=== PATIENT | female | born 1995 | race Caucasian/White ===

== ENCOUNTER 2017-06-01 16:26 | Emergency (ER) | payer OTHER ==
[2017-06-01 17:06] LABS: Appearance,Urine Clear (Clear); Bilirubin,Urine Negative (Negative); Blood,Urine Negative (Negative); Color,Urine Colorless; Glucose,Urine (UA) Negative (Negative); Ketones,Urine Negative (Negative); Leukocyte Esterase,Urine Negative (Negative); Nitrite,Urine Negative (Negative); Protein,Urine Negative (Negative); Specific Gravity,Urine 1.004 (1.001-1.035); Urobilinogen,Urine <2.0 mg/dL (<2.0)
--- NOTE | 2017-06-01 17:13 | ED ---
General Adult HPI - General Chief complaint: Abdominal Pain Stated complaint: Abd Pain-11 wks Time Seen by Provider: 06/01/17 16:47 Source: patient, RN notes reviewed, old records reviewed Mode of arrival: ambulatory Limitations: no limitations - History of Present Illness Initial comments: This is a 22-year-old female at a. This patient presents today for evaluation regards to cramping, works abdominal cramping. Patient's known positive but unknown dates. No prior evaluation of . No vaginal bleeding no significant pain is cramping. This is a with no prior complications of first . Patient denies any recent fever no nausea vomiting or diarrhea - Related Data Home Medications Medication Instructions Recorded Confirmed Pnv,Calcium 72/Iron/Folic Acid 1 tab PO HS 08/10/14 06/01/17 [Pnv Plus Multivit Tab] Allergies Allergy/AdvReac Type Severity Reaction Status Date / Time No Known Allergies Allergy Verified 06/01/17 16:51 Review of Systems ROS Statement: Those systems with pertinent positive or pertinent negative responses have been documented in the HPI. ROS Other: All systems not noted in ROS Statement are negative. Past Medical History Past Medical History: No Reported History History of Any Multi-Drug Resistant Organisms: None Reported Past Surgical History: No Surgical Hx Reported Past Anesthesia/Blood Transfusion Reactions: No Reported Reaction Past Psychological History: Anxiety, Bipolar Smoking Status: Never smoker Past Alcohol Use History: None Reported Past Drug Use History: None Reported - Past Family History Mother Additional Family Medical History / Comment(s): type 2 diabetes General Exam Limitations: no limitations General appearance: alert, in no apparent distress Head exam: Present: atraumatic, normocephalic, normal inspection Eye exam: Present: normal appearance, PERRL, EOMI. Absent: scleral icterus, conjunctival injection, periorbital swelling ENT exam: Present: normal exam, mucous membranes moist Neck exam: Present: normal inspection. Absent: tenderness, meningismus, lymphadenopathy Respiratory exam: Present: normal lung sounds bilaterally. Absent: respiratory distress, wheezes, rales, rhonchi, stridor Cardiovascular Exam: Present: regular rate, normal rhythm, normal heart sounds. Absent: systolic murmur, diastolic murmur, rubs, gallop, clicks GI/Abdominal exam: Present: soft, normal bowel sounds. Absent: distended, tenderness, guarding, rebound, rigid Extremities exam: Present: normal inspection, full ROM, normal capillary refill. Absent: tenderness, pedal edema, joint swelling, calf tenderness Back exam: Present: normal inspection Neurological exam: Present: alert, oriented X3, CN II-XII intact Psychiatric exam: Present: normal affect, normal mood Skin exam: Present: warm, dry, intact, normal color. Absent: rash Course Vital Signs 06/01/17 06/01/17 16:40 19:16 Temperature 98.3 F 98 F Pulse Rate 86 83 Respiratory 20 18 Rate Blood Pressure 123/69 117/68 O2 Sat by Pulse 97 99 Oximetry Medical Decision Making - Medical Decision Making 22 female the ER for evasive cramping and . Patient is IP positive. Patient given follow-up for OB for repeat beta-hCG - Lab Data Lab Results 06/01/17 06/01/17 06/01/17 Range/Units 16:47 16:47 18:43 HCG, Quant 56029.1 mIU/mL Urine Color Colorless Urine Appearance Clear (Clear) Urine pH 6.0 (5.0-8.0) Ur Specific [place] 1.004 (1.001-1.035) Urine Protein Negative (Negative) Urine Glucose (UA) Negative (Negative) Urine Ketones Negative (Negative) Urine Blood Negative (Negative) Urine Nitrite Negative (Negative) Urine Bilirubin Negative (Negative) Urine Urobilinogen <2.0 (<2.0) mg/dL Ur Leukocyte Esterase Negative (Negative) Urine HCG, Qual Detected (Not Detectd) - Radiology Data Radiology results: report reviewed (Ultrasound shows POSITIVE GESTATIONAL SAC EARLY ), image reviewed Disposition Clinical Impression: Early stage of , Abdominal pain affecting Disposition: HOME SELF-CARE Instructions: Abdominal Pain in (ED) Referrals: Michael Kumari MD [Primary Care Provider] - 1-2 days
--- NOTE | 2017-06-01 18:12 | US ---
EXAMINATION TYPE: US OB <= 14 wk fetus DATE OF EXAM: 06/01/2017 COMPARISON: NONE CLINICAL HISTORY: Pain. EXAM PERFORMED: Transabdominal (TA), patient refused transvaginal, she stated she wanted to wait and see her [employer] EXAM MEASUREMENTS: GESTATIONAL AGE / DATING Physician Established: Not yet established Dates by LMP: LMP unknown Dates by First Scan: No previous this is first scan Dates by Current Scan for: Unable to date by today's study MATERNAL ANATOMY Uterus: 8.6 x 4.9 x 6.1cm Right Ovary: 4.1 x 2.6 x 3.7cm Left Ovary: 3.7 x 2.0 x 2.2cm Post CDS / Adnexa: wnl Presence of free fluid: no Presence of possible corpus luteal cyst: 2.0 x 2.1 x 1.9cm GESTATION / SURVEY CRL: not yet seen MSD: 0.84 (too early to register date) Yolk Sac (normal less than 6mm): 4mm Date of LMP: patient unsure, she thinks the beginning of February Beta HcG (if available): Not available at this time Probable early IUP, too soon to see crown rump length, can't rule out blighted ovum. IMPRESSION: Intrauterine gestational sac and yolk sac are identified. No current pole likely due to to [place] y intrauterine , however as no pole or heart tones are yet seen anembryonic and ectopic remain within the differential. Correlation should be made with serum beta hCG level. Short-term follow-up serial serum beta hCGs and pelvic ultrasound and 7-10 days are recommende luis angel
[2017-06-01 19:17] VITALS: BP 117/68; PULSE 83; RESP 18; TEMP 98
== END 2017-06-01 19:17 | disposition home or self-care (01) ==
LOC: EC 16:26
DX: O99.89 Other specified diseases and conditions complicating pregnancy, childbirth and the puerperium (principal); R10.9 Unspecified abdominal pain; Z3A.00 Weeks of gestation of pregnancy not specified
CPT/HCPCS: 36415; 76801; 81003; 81025; 84702; 87086; 99284

== ENCOUNTER 2018-01-03 19:20 | Outpatient (CLI) | payer OTHER ==
[2018-01-03 19:59] LABS: Amorphous Sediment,Urine Rare /hpf; Appearance,Urine Clear (Clear); Bilirubin,Urine Negative (Negative); Blood,Urine Negative (Negative); Color,Urine Yellow; Glucose,Urine (UA) Negative (Negative); Ketones,Urine Negative (Negative); Leukocyte Esterase,Urine Trace (Negative); Mucus,Urine Rare /hpf; Nitrite,Urine Negative (Negative); PH, Urine 6.5 (5.0-8.0); Protein,Urine Negative (Negative); RBC,Urine 1 /hpf (0-5); Specific Gravity,Urine 1.014 (1.001-1.035); Squamous Epithelial Cell,Urine 12 /hpf (0-4); Urobilinogen,Urine <2.0 mg/dL (<2.0); WBC,Urine 11 /hpf (0-5)
[2018-01-03 20:16] VITALS: BP 124/67; PULSE 96; RESP 16; TEMP 97.5
--- NOTE | 2018-01-17 08:48 | P.MSEPDOC ---
Presenting Problems - Arrival Data Date of Arrival on Unit: 01/03/18 Time of Arrival on Unit: 19:20 Mode of Transport: Ambulatory - Complaint OB-Reason for Admission/Chief Complaint: Possible Onset of Labor Medical History - Information : 2 Para: 1 Term: 1 : 0 Abortions: Spontaneous or Elective: 0 Number of Living Children: 1 - Gestational Age Gestational Age by ALYSIA (wks/days): 36 Weeks and 3 Days Review of Systems - Review of Systems Constitutional: No problems Breast: No problems ENT: No problems Cardiovascular: No problems Respiratory: No problems Gastrointestinal: No problems Genitourinary: No problems Musculoskeletal: No problems Neurological: No problems Skin: No problems Vital Signs - Temperature Temperature: 97.5 F Temperature Source: Temporal Artery Scan - Pulse Right Brachial Pulse Rate: 96 Pulse Assessment Method: Automatic Cuff - Respirations Respiratory Rate: 16 Oxygen Delivery Method: Room Air O2 Sat by Pulse Oximetry: 98 - Blood Pressure Right Arm Blood Pressure: 124/67 Blood Pressure Mean: 86 Blood Pressure Source: Automatic Cuff Medical Screen Scoring (Pre) - Cervical Exam Dilation: 1-3 cm = 1 Membranes: Intact - Uterine Contractions Frequency: > 5 minutes apart = 1 Duration: N/A Intensity: N/A - Maternal Vital Signs Maternal Temperature: N/A Maternal Blood Pressure: N/A Signs of Preeclampsia: N/A Maternal Respirations: N/A - Pain Assessment Pain Location and Character: Lower, Back Pain Scale Used: Numeric (1 - 10) Pain Intensity: 3 Pain Description: *Acute, Dull Pain Frequency: Intermittent Pain Duration Units: Minutes Pain Behavior: None Exhibited Pain Aggravating Factors: None - Assessment Baseline FHR: 125 Heart Rate - NICHD Category: Category I (Normal) = 0 NST: Reactive Position: N/A Station: N/A - Total Score Total Score (Pre): 2 - Level of Risk Level of Risk: Low (0-5) Physician Notification (Pre) - Physician Notified Physician Notified Date: 01/03/18 Physician Notified Time: 19:30 Physician/Practitioner Notifed:: Dr. Ozuna Spoke With: Dr. Ozuna New Order Received: Yes - Notification Comment Comment: Dr. Ozuna called and given report on pt in triage. Pt c/o. VS wnl. Reactive. nst. Vag exam of 2/60/-2. UA results. Orders recieved to d/c pt to home. Disposition - Disposition OB Disposition: Discharge to home Discharge Date: 01/03/18 Discharge Time: 20:10 I agree with the RN Medical Screening Exam: Yes Risk & Benefit of care provided described in d/c instruction: Yes Diagnosis: FALSE LABOR AT OR AFTER 37 COMPLETED WEEKS OF GESTATION
== END 2018-01-03 20:10 | disposition home or self-care (01) ==
LOC: FBPOP 19:20
PROVIDERS: ATTEND Obstetrics & Gynecology
DX: O47.1 False labor at or after 37 completed weeks of gestation (principal); Z3A.36 36 weeks gestation of pregnancy
CPT/HCPCS: 59025; 81001; G0463; 99213

== ENCOUNTER 2018-01-16 21:51 | Inpatient (IN) | payer OTHER ==
[2018-01-16 22:19] VITALS: RESP 16
[2018-01-16] MEDS ORDERED: AMPICILLIN 2,000 MG in SODIUM CHLORIDE 0.9% 100 ML IVPB ONE (23:00)
[2018-01-16] MEDS ORDERED: TERBUTALINE 1 MG/ML VIAL SQ PRN (23:10)
[2018-01-16] MEDS ORDERED: OXYTOCIN 10 UNIT/ML 1 ML VIAL IM PRN (23:10)
[2018-01-16] MEDS ORDERED: CARBOPROST TROMETHAMINE 250 MCG/ML 1 ML AMP IM PRN (23:10)
[2018-01-16] MEDS ORDERED: METHYLERGONOVINE 0.2 MG/ML 1 ML AMP IM PRN (23:10)
[2018-01-16] MEDS ORDERED: LIDOCAINE 1% INJ 10MG/ML (20 ML MDV) SQ PRN (23:10)
[2018-01-16] MEDS: LACTATED RINGERS 1,000 ML IV SCH (23:32)
[2018-01-16 23:56] VITALS: BMI 29.9
[2018-01-16 23:58] LABS: Basophils % (A) 0 %; Eosinophils # (A) 0.1 k/uL (0-0.7); Eosinophils % (A) 1 %; HCT 36.2 % (34.0-46.0); HGB 12.9 gm/dL (11.4-16.0); Lymphocytes # (A) 1.9 k/uL (1.0-4.8); Lymphocytes % (A) 13 %; MCH 31.4 pg (25.0-35.0); MCHC 35.5 g/dL (31.0-37.0); MCV 88.5 fL (80.0-100.0); Mean Platelet Volume 8.2; Monocytes # (A) 0.6 k/uL (0-1.0); Monocytes % (A) 4 %; Neutrophils # (A) 11.6 k/uL (1.3-7.7); Neutrophils % (A) 81 %; Platelet Count 199 k/uL (150-450); RBC 4.09 m/uL (3.80-5.40); WBC 14.3 k/uL (4.0-11.0)
[2018-01-17] MEDS: AMPICILLIN 1,000 MG in SODIUM CHLORIDE 0.9% 50 ML IVPB SCH ×3 (03:30→11:05)
[2018-01-17] MEDS: OXYTOCIN 20 UNITS/1000 ML NS 1,000 ML IV SCH ×2 (03:31→08:46)
[2018-01-17] MEDS: LACTATED RINGERS 1,000 ML IV SCH (07:36)
[2018-01-17] MEDS ORDERED: BUTORPHANOL 1 MG/ML 1 ML VIAL IV PRN (08:48)
--- NOTE | 2018-01-17 08:56 | P.HPOB ---
History of Present Illness H&P Date: 01/17/18 Chief Complaint: Intrauterine at term: Active labor Deja was admitted last night for active labor. She had made change from 5 cm to 6 cm and was ronen every 2-5 minutes. Through the course of the evening her contractions did dissipate, however she was still dilated to 6-7 cm this morning and artificial rupture membranes was performed with clear fluid noted. We'll also initiate augmentation of labor with Pitocin. Her Precis course otherwise was unremarkable. Pertinent labs O+ blood type Rh and it was negative, rubella immune, hepatitis B surface antigen as well as RPR were also negative. GBS was positive. We'll initiate Pitocin augmentation of labor as well as she has received antibiotics for GBS prophylaxis. Past Medical History Past Medical History: No Reported History History of Any Multi-Drug Resistant Organisms: None Reported Past Surgical History: No Surgical Hx Reported Past Anesthesia/Blood Transfusion Reactions: No Reported Reaction Past Psychological History: Anxiety, Bipolar, Depression Smoking Status: Never smoker Past Alcohol Use History: None Reported Past Drug Use History: None Reported - Past Family History Mother Additional Family Medical History / Comment(s): type 2 diabetes Medications and Allergies Home Medications Medication Instructions Recorded Confirmed Type Pnv,Calcium 72/Iron/Folic Acid 1 tab PO HS 08/10/14 01/16/18 History [Pnv Plus Multivit Tab] Allergies Allergy/AdvReac Type Severity Reaction Status Date / Time No Known Allergies Allergy Verified 01/03/18 19:34 Exam Osteopathic Statement: *. No significant issues noted on an osteopathic structural exam other than those noted in the History and Physical/Consult. Vital Signs Temp Pulse Resp BP 01/16/18 22:10 97.2 F L 112 H 16 131/73 Intake and Output 01/16/18 01/17/18 01/17/18 22:59 06:59 14:59 Intake Total 100 Balance 100 Intake: Intake, IV Titration 100 Amount Ampicillin 2,000 mg In 100 Sodium Chloride 0.9% 100 ml @ 200 mls/hr IVPB ONCE ONE Rx#:[id number] Other: # Voids 2 Weight 76.657 kg 76.657 kg - OBG Physical Exam Breast: both: normal (no masses) Abdomen: bowel sounds normal, no diffuse tenderness, no bruit present, no guarding noted, no hepatomegaly, no splenomegaly, no mass Vulva: both: normal Vagina: normal moisture, no discharge Cervix: no lesion, no discharge Uterus: normal size, normal contour Adnexa: both: normal Anus/Rectum: normal perianal skin, no rectal mass, no hemorrhoids, heme negative Results Result Diagrams: 01/16/18 23:30 Abnormal Lab Results - Last 24 Hours (Table) 01/16/18 Range/Units 23:30 WBC 14.3 H (4.0-11.0) k/uL Neutrophils # 11.6 H (1.3-7.7) k/uL
[2018-01-17] MEDS ORDERED: SIMETHICONE 80 MG CHEWABLE PO PRN (12:33)
[2018-01-17] MEDS ORDERED: ZOLPIDEM 5 MG TAB PO PRN (12:33)
[2018-01-17] MEDS ORDERED: HYDROCORTISONE 2.5% RECTAL CREAM 30 GM TUBE RECTAL PRN (12:33)
[2018-01-17] MEDS ORDERED: ACETAMINOPHEN TAB 325 MG TAB PO PRN (12:33)
[2018-01-17] MEDS ORDERED: diphenhydrAMINE 50 MG/ML 1 ML VIAL IVP PRN ×2 (12:33)
[2018-01-17] MEDS ORDERED: IBUPROFEN 600 MG TAB PO PRN (12:33)
[2018-01-17] MEDS ORDERED: WITCH HAZEL 1 EACH MED..PAD TOPICAL PRN (12:33)
[2018-01-17] MEDS ORDERED: LANOLIN CREAM 5 GM TUBE TOPICAL PRN (12:33)
[2018-01-17] MEDS ORDERED: BENZOCAINE/MENTHOL SPRAY 1 GM/SPRAY AEROSOL TOPICAL PRN (12:33)
[2018-01-17] MEDS ORDERED: diphenhydrAMINE 25 MG CAP PO PRN (12:33)
[2018-01-17] MEDS ORDERED: diphenhydrAMINE 50 MG CAP PO PRN (12:33)
--- NOTE | 2018-01-17 12:35 | P.PROBDLV ---
Vaginal Delivery Note - . Vaginal Delivery Note: Patient progressed to complete and pushing with spontaneous vaginal delivery of a viable female from right occiput anterior position. Falling deliver the head a compound hand was noted and easily delivered with gentle rotation the full arm delivered followed by the anterior arm and remainder the baby. Mouth nares were bulb suctioned and baby was placed on mother's abdomen where the umbilical cord was clamped cut usual fashion. Once is accomplished during delivery of the placenta I could feel the umbilical cord from the placenta so we took a very slow progression the cord and some membranes seem to be separate from the placenta and despite very slow on movement the cord essentially from the placental disc fully. We'll send for pathology. Once this was accomplished she and I discussed going to the operating room for exploratory exam under anesthesia, however she declined and wanted me to try and rhythm. She also declined IV pain medication for this. I did manually explored the uterus and the placental disc appears to be removed intact and on second is exam membranes were noted but no further membranes or placental are noted at the conclusion. Her bleeding is well controlled this time. She is aware that there is a possibility that there may still be some fragments of placenta or membrane still inside of her uterus and it may necessitate a D&C in the future, however this time there does not appear to be and on exam I cannot feel any further membranes or placental pieces. scores were 9 and 9 at one and 5 minutes respectively and the weight was 6 lbs. 9 oz. Both mother and baby currently appear stable following delivery. We'll monitor her bleeding very closely and address further treatments as needed.
[2018-01-17] MEDS: SENNOSIDES-DOCUSATE SODIUM 1 EACH TAB PO SCH (23:54)
[2018-01-18 07:07] LABS: Basophils % (A) 0 %; Eosinophils # (A) 0.1 k/uL (0-0.7); Eosinophils % (A) 1 %; HCT 31.9 % (34.0-46.0); HGB 11.1 gm/dL (11.4-16.0); Lymphocytes # (A) 1.6 k/uL (1.0-4.8); Lymphocytes % (A) 15 %; MCH 31.3 pg (25.0-35.0); MCHC 34.8 g/dL (31.0-37.0); Mean Platelet Volume 7.7; Monocytes # (A) 0.3 k/uL (0-1.0); Monocytes % (A) 3 %; Neutrophils # (A) 8.6 k/uL (1.3-7.7); Neutrophils % (A) 81 %; Platelet Count 164 k/uL (150-450); RBC 3.55 m/uL (3.80-5.40); RDW 14.3 % (11.5-15.5); WBC 10.7 k/uL (4.0-11.0)
[2018-01-18 09:00] VITALS: BP 113/69; PULSE 89; TEMP 99
[2018-01-18] MEDS: SENNOSIDES-DOCUSATE SODIUM 1 EACH TAB PO SCH (09:00)
--- NOTE | 2018-01-18 13:00 | P.DS ---
Providers Date of admission: 01/16/18 23:07 Expected date of discharge: 01/18/18 Attending physician: Dennis Ozuna Primary care physician: Dennis Ozuna [facility] Course: Deja is doing very well day 1. She is ambulating, voiding, and she is tolerating her diet. She voices no complaints and requests discharged home today. Her bleeding is very light and there is no sign of retained products at this time we'll therefore discharged patient home and instructions to follow up with me in 6 weeks. Other discharge instructions were thoroughly reviewed and all questions were answered for her prior to her discharge. Her heart was regular, lungs were clear, extremities without pain. Abdomen soft uterus is firm and lochia is reported light. Assessment day 1. Plan discharged home follow up with me in 6 weeks. Patient Condition at Discharge: Good Plan - Discharge Summary New Discharge Prescriptions: No Action Pnv,Calcium 72/Iron/Folic Acid [Pnv Plus Multivit Tab] 1 tab PO HS Discharge Medication List Pnv,Calcium 72/Iron/Folic Acid [Pnv Plus Multivit Tab] 1 tab PO HS [History] Follow up Appointment(s)/Referral(s): Dennis Ozuna DO [Primary Care Provider] - 1 Week Activity/Diet/Wound Care/Special Instructions: No heavy lifting, limit stairs and driving and pelvic rest. If any high temperatures, heavy bleeding, or severe pain call my office Discharge Disposition: HOME SELF-CARE
== END 2018-01-18 13:40 | disposition home or self-care (01) | DRG 807 ==
LOC: FBPOP 21:51 → 4FBP 23:07
PROVIDERS: ADMIT Obstetrics & Gynecology; ATTEND Obstetrics & Gynecology
PROC: 10907ZC Drainage of Amniotic Fluid, Therapeutic from Products of Conception, Via Natural or Artificial Opening (ICD-10-PCS; principal; 2018-01-16)
PROC: 10E0XZZ Delivery of Products of Conception, External Approach (ICD-10-PCS; 2018-01-16)
DX: O32.6XX0 Maternal care for compound presentation, not applicable or unspecified (principal); Z37.0 Single live birth; O69.89X0 Labor and delivery complicated by other cord complications, not applicable or unspecified; O99.824 Streptococcus B carrier state complicating childbirth; Z3A.38 38 weeks gestation of pregnancy; Z83.3 Family history of diabetes mellitus; Z86.59 Personal history of other mental and behavioral disorders
CPT/HCPCS: 59025; 85025; 86850; 86900; 86901; 88307; 99213

== ENCOUNTER 2018-08-31 19:44 | Emergency (ER) | payer OTHER ==
[2018-08-31 20:44] LABS: Appearance,Urine Clear (Clear); Bilirubin,Urine Negative (Negative); Blood,Urine Negative (Negative); Color,Urine Yellow; Glucose,Urine (UA) Negative (Negative); Ketones,Urine Negative (Negative); Leukocyte Esterase,Urine Small (Negative); Mucus,Urine Rare /hpf; Nitrite,Urine Negative (Negative); PH, Urine 5.5 (5.0-8.0); Protein,Urine Negative (Negative); RBC,Urine <1 /hpf (0-5); Specific Gravity,Urine 1.022 (1.001-1.035); Squamous Epithelial Cell,Urine 2 /hpf (0-4); Urobilinogen,Urine <2.0 mg/dL (<2.0)
--- NOTE | 2018-08-31 21:34 | ED ---
Female Urogenital HPI - General Chief complaint: Vaginal Bleeding Stated complaint: Spotting- Time Seen by Provider: 08/31/18 19:49 Source: patient, family Mode of arrival: ambulatory Limitations: no limitations - History of Present Illness Initial comments: Patient is a 23-year-old female presenting to the emergency Department with complaints of vaginal spotting 3 days and mild cramping. Patient states she took at home tests 3 times and they were all positive. Patient reports this will be her third with 2 children at home. Patient states the spotting has been light and mild cramping similar to period cramps. Patient states her last mental cycle was in June. Patient denies abdominal pain, urinary symptoms. Patient has no other complaints at this time. - Related Data Home Medications Medication Instructions Recorded Confirmed No Known Home Medications 08/31/18 08/31/18 Allergies Allergy/AdvReac Type Severity Reaction Status Date / Time No Known Allergies Allergy Verified 08/31/18 20:10 Review of Systems ROS Statement: Those systems with pertinent positive or pertinent negative responses have been documented in the HPI. ROS Other: All systems not noted in ROS Statement are negative. Past Medical History Past Medical History: No Reported History History of Any Multi-Drug Resistant Organisms: None Reported Past Surgical History: No Surgical Hx Reported Past Anesthesia/Blood Transfusion Reactions: No Reported Reaction Past Psychological History: Anxiety, Bipolar, Depression Smoking Status: Never smoker Past Alcohol Use History: None Reported Past Drug Use History: None Reported - Past Family History Mother Additional Family Medical History / Comment(s): type 2 diabetes General Exam - General Exam Comments Initial Comments: GENERAL: Well-appearing, well-nourished and in no acute distress. HEAD: Atraumatic, normocephalic. EYES: Pupils equal round and reactive to light, extraocular movements intact, sclera anicteric, conjunctiva are normal. ENT: TMs normal, nares patent, oropharynx clear without exudates. Moist mucous membranes. NECK: Normal range of motion, supple without lymphadenopathy or JVD. LUNGS: Breath sounds clear to auscultation bilaterally and equal. No wheezes rales or rhonchi. HEART: Regular rate and rhythm without murmurs, rubs or gallops. ABDOMEN: Soft, nontender, normoactive bowel sounds. No guarding, no rebound. No masses appreciated. : Deferred EXTREMITIES: Normal range of motion, no pitting or edema. No clubbing or cyanosis. NEUROLOGICAL: Cranial nerves II through XII grossly intact. Normal speech, normal gait. PSYCH: Normal mood, normal affect. SKIN: Warm, Dry, normal turgor, no rashes or lesions noted. Limitations: no limitations Course Vital Signs 08/31/18 08/31/18 19:46 22:37 Temperature 98.8 F Pulse Rate 94 87 Respiratory 20 18 Rate Blood Pressure 133/83 120/81 O2 Sat by Pulse 98 98 Oximetry Medical Decision Making - Medical Decision Making Patient is a 23-year-old female complaining of vaginal spotting 3 days and mild cramping. Patient reports 3 positive at-home test. Patient will be . UA reveals positive . CBC/BMP are within normal limits. UA reveals no UTI. HCG, sheree is 725. Patient refused transvaginal ultrasound there for only transabdominal examination was performed. No intrauterine identified on transabdominal. Recommend OB follow-up in 48 hours for repeat hCG and ultrasound. Return parameters were discussed. Patient will be discharged home. - Lab Data Result diagrams: 08/31/18 21:20 08/31/18 21:20 Lab Results 08/31/18 08/31/18 08/31/18 Range/Units 20:30 20:30 21:20 WBC (3.8-10.6) k/uL RBC (3.80-5.40) m/uL Hgb (11.4-16.0) gm/dL Hct (34.0-46.0) % MCV (80.0-100.0) fL MCH (25.0-35.0) pg MCHC (31.0-37.0) g/dL RDW (11.5-15.5) % Plt Count (150-450) k/uL Neutrophils % % Lymphocytes % % Monocytes % % Eosinophils % % Basophils % % Neutrophils # (1.3-7.7) k/uL Lymphocytes # (1.0-4.8) k/uL Monocytes # (0-1.0) k/uL Eosinophils # (0-0.7) k/uL Basophils # (0-0.2) k/uL Sodium 138 (137-145) mmol/L Potassium 4.2 (3.5-5.1) mmol/L Chloride 104 (98-107) mmol/L Carbon Dioxide 23 (22-30) mmol/L Anion Gap 11 mmol/L BUN 12 (7-17) mg/dL Creatinine 0.64 (0.52-1.04) mg/dL Est GFR (CKD-EPI)AfAm >90 (>60 ml/min/1.73 sqM) Est GFR (CKD-EPI)NonAf >90 (>60 ml/min/1.73 sqM) Glucose 100 H (74-99) mg/dL Calcium 9.3 (8.4-10.2) mg/dL HCG, Quant 725.3 mIU/mL Urine Color Yellow Urine Appearance Clear (Clear) Urine pH 5.5 (5.0-8.0) Ur Specific [facility] 1.022 (1.001-1.035) Urine Protein Negative (Negative) Urine Glucose (UA) Negative (Negative) Urine Ketones Negative (Negative) Urine Blood Negative (Negative) Urine Nitrite Negative (Negative) Urine Bilirubin Negative (Negative) Urine Urobilinogen <2.0 (<2.0) mg/dL Ur Leukocyte Esterase Small H (Negative) Urine RBC <1 (0-5) /hpf Urine WBC 9 H (0-5) /hpf Ur Squamous Epith Cells 2 (0-4) /hpf Urine Mucus Rare H (None) /hpf Urine HCG, Qual Detected (Not Detectd) 08/31/18 Range/Units 21:20 WBC 9.1 (3.8-10.6) k/uL RBC 5.01 (3.80-5.40) m/uL Hgb 14.0 (11.4-16.0) gm/dL Hct 41.4 (34.0-46.0) % MCV 82.7 (80.0-100.0) fL MCH 27.9 (25.0-35.0) pg MCHC 33.8 (31.0-37.0) g/dL RDW 14.2 (11.5-15.5) % Plt Count 296 (150-450) k/uL Neutrophils % 65 % Lymphocytes % 28 % Monocytes % 3 % Eosinophils % 2 % Basophils % 0 % Neutrophils # 6.0 (1.3-7.7) k/uL Lymphocytes # 2.6 (1.0-4.8) k/uL Monocytes # 0.3 (0-1.0) k/uL Eosinophils # 0.2 (0-0.7) k/uL Basophils # 0.0 (0-0.2) k/uL Sodium (137-145) mmol/L Potassium (3.5-5.1) mmol/L Chloride (98-107) mmol/L Carbon Dioxide (22-30) mmol/L Anion Gap mmol/L BUN (7-17) mg/dL Creatinine (0.52-1.04) mg/dL Est GFR (CKD-EPI)AfAm (>60 ml/min/1.73 sqM) Est GFR (CKD-EPI)NonAf (>60 ml/min/1.73 sqM) Glucose (74-99) mg/dL Calcium (8.4-10.2) mg/dL HCG, Quant mIU/mL Urine Color Urine Appearance (Clear) Urine pH (5.0-8.0) Ur Specific [facility] (1.001-1.035) Urine Protein (Negative) Urine Glucose (UA) (Negative) Urine Ketones (Negative) Urine Blood (Negative) Urine Nitrite (Negative) Urine Bilirubin (Negative) Urine Urobilinogen (<2.0) mg/dL Ur Leukocyte Esterase (Negative) Urine RBC (0-5) /hpf Urine WBC (0-5) /hpf Ur Squamous Epith Cells (0-4) /hpf Urine Mucus (None) /hpf Urine HCG, Qual (Not Detectd) Disposition Clinical Impression: and not yet delivered in first trimester, Vaginal spotting Disposition: HOME SELF-CARE Condition: Stable Instructions (If sedation given, give patient instructions): (ED) Additional Instructions: Please return to the Emergency Department if symptoms worsen or any other concerns. Follow up with OB in 48 hours for repeat labs and ultrasound. Is patient prescribed a controlled substance at d/c from ED?: No Referrals: Michael Kumari MD [Primary Care Provider] - 1-2 days Simi Reno MD [STAFF PHYSICIAN] - 1-2 days
[2018-08-31 21:36] LABS: Basophils % (A) 0 %; Eosinophils # (A) 0.2 k/uL (0-0.7); Eosinophils % (A) 2 %; HCT 41.4 % (34.0-46.0); Lymphocytes # (A) 2.6 k/uL (1.0-4.8); Lymphocytes % (A) 28 %; MCH 27.9 pg (25.0-35.0); MCHC 33.8 g/dL (31.0-37.0); MCV 82.7 fL (80.0-100.0); Mean Platelet Volume 7.5; Monocytes # (A) 0.3 k/uL (0-1.0); Monocytes % (A) 3 %; Neutrophils % (A) 65 %; Platelet Count 296 k/uL (150-450); RBC 5.01 m/uL (3.80-5.40); RDW 14.2 % (11.5-15.5); WBC 9.1 k/uL (3.8-10.6)
[2018-08-31 21:44] LABS: African American GFR (CKD) >90 (>60 ml/min/1.73 sqM); Anion Gap 11 mmol/L; Blood Urea Nitrogen 12 mg/dL (7-17); Calcium 9.3 mg/dL (8.4-10.2); Carbon Dioxide 23 mmol/L (22-30); Chloride 104 mmol/L (98-107); Glucose 100 mg/dL (74-99); Potassium 4.2 mmol/L (3.5-5.1); Sodium 138 mmol/L (137-145)
[2018-08-31 22:00] LABS: HCG,Quantitative Serum 725.3 mIU/mL
--- NOTE | 2018-08-31 22:51 | US ---
EXAM: US First Trimester, Transabdominal CLINICAL HISTORY: ITS.REASON US Reason: Pain TECHNIQUE: Real-time transabdominal obstetrical ultrasound of the maternal pelvis and a first trimester with image documentation. COMPARISON: None. FINDINGS: Gestation: No intrauterine identified on transabdominal ultrasound examination. Placenta/amniotic fluid: Not identified. Uterus/cervix: Uterus measures 8.8 x 5.7 x 6.1 cm. The endometrial stripe is thickened and heterogeneous measuring up to the 15 mm in thickness. Hypoechoic focus in the cervix could potentially represent a small amount of fluid or blood. No myometrial mass. Ovaries: Left ovary measures 3.6 x 1.9 x 1.9 cm. Right ovary measures 2.5 x 2.4 x 3.2 cm. No mass. Free fluid: No free fluid. Other findings: Reported LMP 06/14/2018. Patient refused transvaginal examination. Therefore, only transabdominal examination was performed. IMPRESSION: No intrauterine identified on transabdominal ultrasound examination. Recommend obstetrics consultation. Consider follow-up pelvic ultrasound in 1 week.
[2018-08-31 23:41] VITALS: BP 116/70; PULSE 82; RESP 16; TEMP 98
== END 2018-08-31 23:40 | disposition home or self-care (01) ==
LOC: EC 19:44
DX: N93.9 Abnormal uterine and vaginal bleeding, unspecified (principal); R10.9 Unspecified abdominal pain; Z53.29 Procedure and treatment not carried out because of patient's decision for other reasons
CPT/HCPCS: 36415; 76801; 80048; 81001; 81025; 84702; 85025; 87086; 99284

== ENCOUNTER → 2018-09-06 | Outpatient (CLI) | payer OTHER | END | disposition home or self-care (01) | LOC: LABWHC1 11:41 | PROVIDERS: ATTEND Obstetrics & Gynecology | DX: Z34.80 Encounter for supervision of other normal pregnancy, unspecified trimester (principal) | CPT/HCPCS: 36415; 84702 ==

== ENCOUNTER → 2018-09-22 | Outpatient (CLI) | payer OTHER ==
--- NOTE | 2018-09-22 15:31 | US ---
EXAMINATION TYPE: Transabdominal DATE OF EXAM: 09/22/2018 2:56 PM COMPARISON: CLINICAL HISTORY: Z36 Confirm dates. Confirm dates, irreg menses EXAM PERFORMED: Transabdominal (TA) EXAM MEASUREMENTS: GESTATIONAL AGE / DATING Dates by LMP: (14 weeks/2 days) EDC: 03/21/2019 Dates by Current Scan for: ( 7 weeks/2 days) EDC: 05/09/2019 MATERNAL ANATOMY Uterus: 9.7 x 7.1 x 5.3 cm Right Ovary: 3.6 x 2.1 x 1.9 cm Left Ovary: 2.7 x 1.6 x 1.4 cm Post CDS / Adnexa: no free fluid Presence of free fluid: no Presence of corpus luteal cyst: right ovarian lesion - 2.1 x 1.1 x 1.2 cm Presence of subchorionic bleed: no GESTATION / SURVEY CRL: 1.1 cm (7 weeks/2 days) MSD: seen, not measured Yolk Sac (normal less than 6mm): 2.6 mm Heart Rate: 151 bpm Rhythm: Normal IUP: Live IUP Date of LMP: 06/14/2018, Beta HcG (if available): Not available at this time Single live IUP measuring 7 weeks 2 days Anterior intramural leiomyoma is incidentally seen. IMPRESSION: Single live intrauterine with a current sonographic age of 7 weeks and 2 days and estimated date of delivery of 05/09/2019, discordant with menstrual age. Incidentally noted anterior uterine pr obable leiomyoma.
== END | disposition home or self-care (01) ==
LOC: RADUSWWP 14:39
PROVIDERS: ATTEND Obstetrics & Gynecology
DX: Z36.89 Encounter for other specified antenatal screening (principal)
CPT/HCPCS: 76801

== ENCOUNTER 2019-04-07 21:19 | Emergency (ER) | payer OTHER ==
[2019-04-07] MEDS ORDERED: SODIUM CHLORIDE 0.9% 1,000 ML IV STA (22:25)
--- NOTE | 2019-04-07 22:33 | ED ---
Nausea/Vomiting/Diarrhea HPI - General Chief complaint: Nausea/Vomiting/Diarrhea Stated complaint: Vomiting Time Seen by Provider: 04/07/19 22:02 Source: patient Mode of arrival: ambulatory Limitations: no limitations - History of Present Illness Initial comments: Patient is a 23-year-old female presenting to emergency Department with complaints of nausea and vomiting since 11 this morning. Patient has had multiple episodes of vomiting. She is currently 35 weeks . She denies any abdominal pain or vaginal bleeding at this time. She states that her daughter as well as her boyfriend also had similar symptoms yesterday. She denies being nauseous at this time. Her last vomiting episodes was 2 hours prior to arrival. She has no other complaints at this time. Upon arrival to the ER, patient was slightly tachycardia at 118, rest of vitals are normal. - Related Data Previous Rx's Medication Instructions Recorded Cephalexin [Keflex] 500 mg PO BID 5 Days #9 cap 04/08/19 Allergies Allergy/AdvReac Type Severity Reaction Status Date / Time No Known Allergies Allergy Verified 04/07/19 21:38 Review of Systems ROS Statement: Those systems with pertinent positive or pertinent negative responses have been documented in the HPI. ROS Other: All systems not noted in ROS Statement are negative. Past Medical History Past Medical History: No Reported History History of Any Multi-Drug Resistant Organisms: None Reported Past Surgical History: No Surgical Hx Reported Past Anesthesia/Blood Transfusion Reactions: No Reported Reaction Past Psychological History: Anxiety, Bipolar, Depression Smoking Status: Never smoker Past Alcohol Use History: None Reported Past Drug Use History: None Reported - Past Family History Mother Additional Family Medical History / Comment(s): type 2 diabetes General Exam - General Exam Comments Initial Comments: GENERAL: Well-appearing, well-nourished and in no acute distress. HEAD: Atraumatic, normocephalic. EYES: Pupils equal round and reactive to light, extraocular movements intact, sclera anicteric, conjunctiva are normal. ENT: TMs normal, nares patent, oropharynx clear without exudates. Moist mucous membranes. NECK: Normal range of motion, supple without lymphadenopathy or JVD. LUNGS: Breath sounds clear to auscultation bilaterally and equal. No wheezes rales or rhonchi. HEART: Regular rate and rhythm without murmurs, rubs or gallops. ABDOMEN: Patient 35 weeks , nontender abdomen. Soft, normoactive bowel sounds. : Deferred EXTREMITIES: Normal range of motion, no pitting or edema. No clubbing or cyanosis. NEUROLOGICAL: Normal speech, normal gait. PSYCH: Normal mood, normal affect. SKIN: Warm, Dry, normal turgor, no rashes or lesions noted. Limitations: no limitations Course Vital Signs 04/07/19 04/08/19 21:36 00:04 Temperature 97.4 F L 100.8 F H Pulse Rate 118 H 115 H Respiratory 18 16 Rate Blood Pressure 119/74 119/79 O2 Sat by Pulse 99 97 Oximetry Medical Decision Making - Medical Decision Making Patient is a 23-year-old female presenting with nausea and vomiting since this morning. Family members had similar symptoms. She is currently 35 weeks , no complications. No abdominal pain or vaginal bleeding today. Upon arrival at the ER, patient was not presently nausea today. Patient was given fluids. Urine shows small amount bacteria and 4+ ketones. I discussed the patient she is dehydrated and is could be gastroenteritis. Patient has remained symptom-free during ER stay. Patient will be started on antibiotic for a symptom and bacteremia secondary to . heart tones were checked and were normal, 150 to 160s. Patient is agreeable this plan of care. She stable for discharge. Return parameters were discussed with the patient she verbalized understanding. Case discussed with Dr. Wolff. - Lab Data Result diagrams: 04/07/19 22:57 Lab Results 04/07/19 04/07/19 Range/Units 22:20 22:57 Sodium 137 (137-145) mmol/L Potassium 3.8 (3.5-5.1) mmol/L Chloride 104 (98-107) mmol/L Carbon Dioxide 21 L (22-30) mmol/L Anion Gap 12 mmol/L BUN 13 (7-17) mg/dL Creatinine 0.53 (0.52-1.04) mg/dL Est GFR (CKD-EPI)AfAm >90 (>60 ml/min/1.73 sqM) Est GFR (CKD-EPI)NonAf >90 (>60 ml/min/1.73 sqM) Glucose 98 (74-99) mg/dL Calcium 8.3 L (8.4-10.2) mg/dL Total Bilirubin 1.6 H (0.2-1.3) mg/dL AST 27 (14-36) U/L ALT 14 (4-34) U/L Alkaline Phosphatase 159 H (38-126) U/L Total Protein 7.8 (6.3-8.2) g/dL Albumin 4.0 (3.5-5.0) g/dL Urine Color Yellow Urine Appearance Cloudy H (Clear) Urine pH 5.5 (5.0-8.0) Ur Specific [place] 1.034 (1.001-1.035) Urine Protein 1+ H (Negative) Urine Glucose (UA) Negative (Negative) Urine Ketones 4+ H (Negative) Urine Blood Negative (Negative) Urine Nitrite Negative (Negative) Urine Bilirubin Negative (Negative) Urine Urobilinogen <2.0 (<2.0) mg/dL Ur Leukocyte Esterase Small H (Negative) Urine RBC 2 (0-5) /hpf Urine WBC 5 (0-5) /hpf Ur Squamous Epith Cells 16 H (0-4) /hpf Urine Bacteria Rare H (None) /hpf Urine Mucus Few H (None) /hpf Disposition Clinical Impression: Nausea & vomiting, Asymptomatic bacteriuria during Disposition: HOME SELF-CARE Condition: Stable Instructions (If sedation given, give patient instructions): Nausea and Vomiting in (ED) Additional Instructions: Please return to the Emergency Department if symptoms worsen or any other concerns. Follow-up with OTOLARYNGOLOGY PHYSICIAN. Prescriptions: Cephalexin [Keflex] 500 mg PO BID 5 Days #9 cap Is patient prescribed a controlled substance at d/c from ED?: No Referrals: Michael Kumari MD [Primary Care Provider] - 1-2 days
[2019-04-07 22:46] LABS: Appearance,Urine Cloudy (Clear); Bacteria,Urine Rare /hpf; Bilirubin,Urine Negative (Negative); Blood,Urine Negative (Negative); Color,Urine Yellow; Glucose,Urine (UA) Negative (Negative); Ketones,Urine 4+ (Negative); Leukocyte Esterase,Urine Small (Negative); Mucus,Urine Few /hpf; Nitrite,Urine Negative (Negative); PH, Urine 5.5 (5.0-8.0); Protein,Urine 1+ (Negative); RBC,Urine 2 /hpf (0-5); Specific Gravity,Urine 1.034 (1.001-1.035); Squamous Epithelial Cell,Urine 16 /hpf (0-4); Urobilinogen,Urine <2.0 mg/dL (<2.0); WBC,Urine 5 /hpf (0-5)
[2019-04-07 23:20] LABS: ALT 14 U/L (4-34); AST 27 U/L (14-36); African American GFR (CKD) >90 (>60 ml/min/1.73 sqM); Alkaline Phosphatase 159 U/L (38-126); Anion Gap 12 mmol/L; Blood Urea Nitrogen 13 mg/dL (7-17); Calcium 8.3 mg/dL (8.4-10.2); Carbon Dioxide 21 mmol/L (22-30); Chloride 104 mmol/L (98-107); Glucose 98 mg/dL (74-99); Non-African American GFR(CKD) >90 (>60 ml/min/1.73 sqM); Potassium 3.8 mmol/L (3.5-5.1); Sodium 137 mmol/L (137-145); Total Bilirubin 1.6 mg/dL (0.2-1.3); Total Protein 7.8 g/dL (6.3-8.2)
[2019-04-08 00:04] VITALS: BP 119/79; PULSE 115; RESP 16; TEMP 100.8
[2019-04-08] MEDS ORDERED: ACETAMINOPHEN TAB 325 MG TAB PO STA (00:20)
[2019-04-08] MEDS ORDERED: CEPHALEXIN 500 MG CAP PO STA (00:25)
== END 2019-04-08 01:04 | disposition home or self-care (01) ==
LOC: EC 21:19
DX: O21.9 Vomiting of pregnancy, unspecified (principal); O99.89 Other specified diseases and conditions complicating pregnancy, childbirth and the puerperium; R82.71 Bacteriuria; O99.283 Endocrine, nutritional and metabolic diseases complicating pregnancy, third trimester; E86.0 Dehydration; Z3A.35 35 weeks gestation of pregnancy
CPT/HCPCS: 36415; 80053; 81001; 96360; 99284

== ENCOUNTER 2019-05-01 00:56 | Inpatient (IN) | payer OTHER ==
[2019-05-01] MEDS ORDERED: METHYLERGONOVINE 0.2 MG/ML 1 ML AMP IM PRN (01:29)
[2019-05-01] MEDS ORDERED: LIDOCAINE 0.5% (PF) 5 MG/ML (50 ML SDV) SQ PRN (01:29)
[2019-05-01] MEDS ORDERED: TERBUTALINE 1 MG/ML VIAL SQ PRN (01:29)
[2019-05-01] MEDS ORDERED: OXYTOCIN 10 UNIT/ML 1 ML VIAL IM PRN (01:29)
[2019-05-01] MEDS ORDERED: BUTORPHANOL 1 MG/ML 1 ML VIAL IV PRN (01:29)
[2019-05-01] MEDS ORDERED: CARBOPROST TROMETHAMINE 250 MCG/ML 1 ML AMP IM PRN (01:29)
[2019-05-01] MEDS ORDERED: OXYTOCIN 30 UNITS/500 ML NS 30 UNIT in SALINE 1 500ML.BAG IV SCH (01:30)
[2019-05-01] MEDS ORDERED: LACTATED RINGERS 1,000 ML IV SCH (01:30)
--- NOTE | 2019-05-01 01:43 | P.HPOB ---
History of Present Illness H&P Date: 05/01/19 Chief Complaint: Contractions This is a 23-year-old female 3 para 2 with an estimated date of confinement of 05/09/2019, estimated gestational age of 38-6/7 weeks, who presents to labor and delivery with complaints of contractions that became stronger this evening. care has been with Dr. Ozuna and has been uncomplicated. She denies any rupture of membranes. She did have a gush of fluid that she felt on Wednesday but amnisure is negative. labs: Hepatitis B surface antigen-negative RPR-nonreactive Rubella-immune Blood type-O+ Antibody screen-negative HIV-nonreactive Hemoglobin-13.3 Random glucose-78 Obstetrical ultrasound-normal anatomy One hour Glucola-99 Group B streptococcus-negative, however positive in first . Obstetrical history: . History of 2 vaginal deliveries at term. Social history: She is single. Review of Systems Constitutional: Denies chills, Denies fever Eyes: denies blurred vision, denies pain Ears, nose, mouth and throat: Denies headache, Denies sore throat Cardiovascular: Denies chest pain, Denies shortness of breath Respiratory: Denies cough Gastrointestinal: Reports abdominal pain (Contractions) Genitourinary: Reports pelvic pain, Reports Musculoskeletal: Reports low back pain Integumentary: Denies pruritus, Denies rash Neurological: Denies numbness, Denies weakness Psychiatric: Denies anxiety, Denies depression Past Medical History Past Medical History: No Reported History History of Any Multi-Drug Resistant Organisms: None Reported Past Surgical History: No Surgical Hx Reported Past Anesthesia/Blood Transfusion Reactions: No Reported Reaction Past Psychological History: No Psychological Hx Reported Smoking Status: Never smoker Past Alcohol Use History: None Reported Past Drug Use History: None Reported - Past Family History Mother Additional Family Medical History / Comment(s): type 2 diabetes Medications and Allergies Allergies Allergy/AdvReac Type Severity Reaction Status Date / Time No Known Allergies Allergy Verified 05/01/19 00:58 Exam Osteopathic Statement: *. No significant issues noted on an osteopathic structural exam other than those noted in the History and Physical/Consult. Intake and Output 04/30/19 04/30/19 05/01/19 14:59 22:59 06:59 Other: Weight 77.111 kg HEENT: Within normal limits Heart: Regular rate and rhythm Lungs: Clear to auscultation bilaterally Abdomen: Cervix: On admission is 5-6 cm. Currently she is 7 cm/80s 90%/-2 station, posterior. Artificial rupture membranes is carried out with clear fluid noted. Extremities: Negative Homans heart tones: Category 1 Contractions: Every 2-4 minutes Assessment and Plan (1) 38 weeks gestation of Current Visit: Yes Status: Acute Code(s): Z3A.38 - 38 WEEKS GESTATION OF SNOMED Code(s): 06120652 (2) Group B Streptococcus carrier, +RV culture, currently Current Visit: Yes Status: Acute Code(s): O99.820 - STREPTOCOCCUS B CARRIER STATE COMPLICATING SNOMED Code(s): 5212994300777 Plan: Admission for active labor. Expectant management. Antibiotic prophylaxis due to history of positive group B streptococcus.
[2019-05-01] MEDS ORDERED: AMPICILLIN 2,000 MG in SODIUM CHLORIDE 0.9% 100 ML IVPB STA (01:44)
[2019-05-01 01:45] LABS: Basophils % (A) 0 %; Eosinophils # (A) 0.1 k/uL (0-0.7); Eosinophils % (A) 1 %; HCT 35.6 % (34.0-46.0); HGB 12.2 gm/dL (11.4-16.0); Lymphocytes # (A) 1.6 k/uL (1.0-4.8); Lymphocytes % (A) 14 %; MCH 28.8 pg (25.0-35.0); MCHC 34.4 g/dL (31.0-37.0); MCV 83.8 fL (80.0-100.0); Mean Platelet Volume 8.6; Monocytes # (A) 0.4 k/uL (0-1.0); Monocytes % (A) 4 %; Neutrophils # (A) 9.3 k/uL (1.3-7.7); Neutrophils % (A) 79 %; Platelet Count 241 k/uL (150-450); RBC 4.25 m/uL (3.80-5.40); RDW 14.1 % (11.5-15.5); WBC 11.7 k/uL (3.8-10.6)
[2019-05-01] MEDS ORDERED: AMPICILLIN 1,000 MG in SODIUM CHLORIDE 0.9% 50 ML IVPB SCH (04:45)
--- NOTE | 2019-05-01 05:57 | P.PROBDLV ---
Vaginal Delivery Note - . Vaginal Delivery Note: The patient progressed to complete dilation. She did receive ampicillin while in labor. Once she reached approximately 9 cm, she could not help but push and infant delivered in the bed precipitously. A compound presentation with the right hand was noted. After delivery, the cord was clamped and cut and was taken to warmer for evaluation. A viable male infant is noted with scores of 9 at 1 minute and 9 at 5 minutes and infant weight of 7 lbs. 14 oz. Placenta delivered shortly thereafter, intact, with a three-vessel cord. Uterus contracted well after oxytocin was given and uterine massage was carried out. Inspection of the perineum revealed no perineal lacerations. She did have a couple small abrasions near the periurethral area on both sides. These were noted to be hemostatic. Estimated blood loss is approximately 100 mL's. Both mother and infant are in stable condition.
[2019-05-01] MEDS ORDERED: WITCH HAZEL 1 EACH MED..PAD TOPICAL PRN (06:35)
[2019-05-01] MEDS ORDERED: SIMETHICONE 80 MG CHEWABLE PO PRN (06:35)
[2019-05-01] MEDS ORDERED: ZOLPIDEM 5 MG TAB PO PRN (06:35)
[2019-05-01] MEDS ORDERED: ACETAMINOPHEN TAB 325 MG TAB PO PRN (06:35)
[2019-05-01] MEDS ORDERED: BENZOCAINE/MENTHOL SPRAY 1 GM/SPRAY AEROSOL TOPICAL PRN (06:35)
[2019-05-01] MEDS ORDERED: diphenhydrAMINE 25 MG CAP PO PRN (06:35)
[2019-05-01] MEDS ORDERED: LANOLIN CREAM 5 GM TUBE TOPICAL PRN (06:35)
[2019-05-01] MEDS ORDERED: IBUPROFEN 600 MG TAB PO PRN (06:35)
[2019-05-01] MEDS ORDERED: diphenhydrAMINE 50 MG CAP PO PRN (06:35)
[2019-05-01] MEDS ORDERED: OXYTOCIN 20 UNITS/1000 ML NS 1,000 ML IV SCH (06:35)
[2019-05-01] MEDS ORDERED: HYDROCORTISONE 2.5% RECTAL CREAM 30 GM TUBE RECTAL PRN (06:35)
[2019-05-01] MEDS ORDERED: diphenhydrAMINE 50 MG/ML 1 ML VIAL IVP PRN ×2 (06:35)
[2019-05-01] MEDS: SENNOSIDES-DOCUSATE SODIUM 1 EACH TAB PO SCH ×2 (08:44→20:22)
[2019-05-02 06:32] LABS: Basophils % (A) 0 %; Eosinophils # (A) 0.1 k/uL (0-0.7); Eosinophils % (A) 1 %; HCT 36.4 % (34.0-46.0); Lymphocytes # (A) 2.1 k/uL (1.0-4.8); Lymphocytes % (A) 20 %; MCH 27.9 pg (25.0-35.0); MCHC 33.1 g/dL (31.0-37.0); MCV 84.5 fL (80.0-100.0); Mean Platelet Volume 9.3; Monocytes # (A) 0.4 k/uL (0-1.0); Monocytes % (A) 4 %; Neutrophils # (A) 7.8 k/uL (1.3-7.7); Neutrophils % (A) 74 %; Platelet Count 194 k/uL (150-450); RBC 4.31 m/uL (3.80-5.40); RDW 14.1 % (11.5-15.5); WBC 10.6 k/uL (3.8-10.6)
[2019-05-02 07:38] VITALS: BP 113/73; PULSE 76; RESP 14; TEMP 98.2
[2019-05-02] MEDS: SENNOSIDES-DOCUSATE SODIUM 1 EACH TAB PO SCH (08:02)
--- NOTE | 2019-05-02 08:39 | P.DS ---
Providers Date of admission: 05/01/19 01:14 Expected date of discharge: 05/02/19 Attending physician: Dennis Ozuna Primary care physician: Stated None Hospital Course: Deja is doing very well day 1. She is ambulating, voiding and tolerating her diet. She voices no implants and requests discharged home today. Vital signs are stable and she is afebrile. All the questions are answered for her discharge instructions were thoroughly reviewed. On physical exam vital signs were stable again. Heart regular, lungs clear, extremities without pain. Abdomen soft, uterus is firm, lochia is reported be light. Assessment day 1. Plan discharged home follow up with me in 6 weeks Patient Condition at Discharge: Good Plan - Discharge Summary Follow up Appointment(s)/Referral(s): Dennis Ozuna DO [Doctor of Osteopathic Medicine] - 6 Weeks Activity/Diet/Wound Care/Special Instructions: No heavy lifting, limit stairs and driving, and pelvic rest. If any high temperatures, heavy bleeding, or severe pain call my office Discharge Disposition: HOME SELF-CARE
== END 2019-05-02 10:40 | disposition home or self-care (01) | DRG 807 ==
LOC: FBPOP 00:56 → 4FBP 01:14
PROVIDERS: ADMIT Obstetrics & Gynecology; ATTEND Obstetrics & Gynecology
PROC: 10E0XZZ Delivery of Products of Conception, External Approach (ICD-10-PCS; principal; 2019-05-01)
DX: O32.6XX0 Maternal care for compound presentation, not applicable or unspecified (principal); Z37.0 Single live birth; O99.824 Streptococcus B carrier state complicating childbirth; Z3A.38 38 weeks gestation of pregnancy; B95.1 Streptococcus, group B, as the cause of diseases classified elsewhere; Z83.3 Family history of diabetes mellitus
CPT/HCPCS: 59025; 84112; 85025; 86850; 86900; 86901; 99213

== ENCOUNTER 2022-06-17 02:49 | Emergency (ER) | payer OTHER ==
[2022-06-17 02:59] VITALS: BP 122/83; PULSE 116; RESP 14; TEMP 98.3
[2022-06-17] MEDS ORDERED: SODIUM CHLORIDE 0.9% 1,000 ML IV ONE (04:08)
--- NOTE | 2022-06-17 04:44 | ED ---
General Adult HPI - General Chief complaint: Abdominal Pain Stated complaint: vomiting Time Seen by Provider: 06/17/22 03:01 Source: patient Mode of arrival: ambulatory Limitations: no limitations - History of Present Illness Initial comments: This is a 27-year-old female with no past medical history presents emergency department for intermittent nausea, vomiting and diarrhea. The patient stated this is been ongoing and intermittent over the last 3 days. The patient stated that she didn't have any current abdominal pain but stated that she was unaware that she's never had symptoms this long if it was a stomach bug. The patient stated because this been ongoing for so long she came to the emergency Department because she cannot take this in the day longer after she was trying to take care of it at home by herself. The patient denied any current symptoms but stated that she did vomit just before getting in the car to come to the emergency department. The patient denied of any other current complaints. The patient denied any fevers, chills, lightheadedness or dizziness. - Related Data Previous Rx's Medication Instructions Recorded Cephalexin [Keflex] 500 mg PO Q6HR 1 Days #20 cap 06/17/22 Ondansetron Odt [Zofran Odt] 4 mg PO Q8HR PRN #20 tab 06/17/22 Allergies Allergy/AdvReac Type Severity Reaction Status Date / Time No Known Allergies Allergy Verified 05/01/19 00:58 Review of Systems ROS Statement: Those systems with pertinent positive or pertinent negative responses have been documented in the HPI. ROS Other: All systems not noted in ROS Statement are negative. Past Medical History Past Medical History: No Reported History History of Any Multi-Drug Resistant Organisms: None Reported Past Surgical History: No Surgical Hx Reported Past Anesthesia/Blood Transfusion Reactions: No Reported Reaction Past Psychological History: No Psychological Hx Reported Smoking Status: Never smoker Past Alcohol Use History: None Reported Past Drug Use History: None Reported - Past Family History Mother Additional Family Medical History / Comment(s): type 2 diabetes General Exam Limitations: no limitations General appearance: alert, in no apparent distress Head exam: Present: atraumatic, normocephalic, normal inspection Eye exam: Present: normal appearance, PERRL Pupils: Present: normal accommodation ENT exam: Present: normal exam, normal oropharynx, mucous membranes moist Neck exam: Present: normal inspection, full ROM Respiratory exam: Present: normal lung sounds bilaterally Cardiovascular Exam: Present: regular rate, normal rhythm, normal heart sounds GI/Abdominal exam: Present: soft, normal bowel sounds Extremities exam: Present: normal inspection, full ROM Back exam: Present: normal inspection, full ROM Neurological exam: Present: alert, oriented X3, CN II-XII intact Psychiatric exam: Present: normal affect, normal mood Skin exam: Present: warm, dry Course Vital Signs 06/17/22 02:55 Temperature 98.3 F Pulse Rate 116 H Respiratory 14 Rate Blood Pressure 122/83 O2 Sat by Pulse 95 Oximetry Medical Decision Making - Medical Decision Making Was pt. sent in by a medical professional or institution (, BRAD, CHIEF NURSE ANESTHETIST, urgent care, hospital, or [facility]...) When possible be specific @ -No Did you speak to anyone other than the patient for history (EMS, parent, family, police, friend...)? What history was obtained from this source @ -No Did you review nursing and triage notes (agree or disagree)? Why? @ -I reviewed and agree with nursing and triage notes Were old charts reviewed (outside hosp., previous admission, EMS record, old EKG, old radiological studies, urgent care reports/EKG's, [facility] records)? Report findings @ -No old charts were reviewed Differential Diagnosis (chest pain, altered mental status, abdominal pain women, abdominal pain men, vaginal bleeding, weakness, fever, dyspnea, syncope, hea dache, dizziness, GI bleed, back pain, seizure, CVA, palpatations, mental health)? @ -Gastroenteritis, UTI, dehydration EKG interpreted by me (3pts min.). @ -None X-rays interpreted by me (1pt min.). @ -None done CT interpreted by me (1pt min.). @ -None done U/S interpreted by me (1pt. min.). @ -None done What testing was considered but not performed or refused? (CT, X-rays, U/S, labs)? Why? @ -None What meds were considered but not given or refused? Why? @ -None Did you discuss the management of the patient with other professionals (professionals i.e. BRAD Marinelli, CHIEF NURSE ANESTHETIST, lab, RT, psych nurse, geriatric social work professor, jigmaker, teacher, aoc director intelligence officer, bilingual case manager)? Give summary @ -No Was smoking cessation discussed for >3mins.? @ -No Was critical care preformed (if so, how long)? @ -No Were there social determinants of health that impacted care today? How? (Homelessness, low income, unemployed, alcoholism, drug addiction, transportation, low edu. Level, literacy, decrease access to med. care, alf, rehab)? @ -No Was there de-escalation of care discussed even if they declined (Discuss DNR or withdrawal of care, Hospice)? DNR status @ -No What co-morbidities impacted this encounter? (DM, HTN, Smoking, COPD, CAD, Cancer, CVA, ARF, Chemo, Hep., AIDS, mental health diagnosis, sleep apnea, morbid obesity)? @ -None Was patient admitted / discharged? Hospital course, mention meds given and route, prescriptions, significant lab abnormalities, going to OR and other pertinent info. @ -The patient was seen and evaluated emergency department. Physical exam, the patient was resting in bed without any acute distress. Vital signs admission did show mild tachycardia however the patient was comfortably resting in bed on my evaluation. The patient denied any current active symptoms therefore was only given IV fluids while laboratory workup was pending. All laboratory workup was within normal limits and the patient had a mild UTI on urinalysis. There was a delay in the patient being discharged as there was a significant amount of time needed to obtain a urine. The patient remained stable and didn't have any further symptoms the patient was stable for discharge. The patient was given a prescription for Keflex for her UTI as well as given a dose of Keflex in the emergency department. The patient was also given a prescription for Zofran to be taken at home. The patient was advised to continue to monitor symptoms and to report back to the emergency department if her pain became acutely worse. The patient was agreeable to this and all her questions were answered appropri ately. The patient was discharged home in stable condition. Undiagnosed new problem with uncertain prognosis? @ -No Drug Therapy requiring intensive monitoring for toxicity (Heparin, Nitro, Insulin, Cardizem)? @ -No Were any procedures done? @ -No Diagnosis/symptom? @ -Nausea, vomiting likely secondary to gastroenteritis Acute, or Chronic, or Acute on Chronic? @ -Acute Uncomplicated (without systemic symptoms) or Complicated (systemic symptoms)? @ -Uncomplicated Side effects of treatment? @ -No Exacerbation, Progression, or Severe Exacerbation? @ -No Poses a threat to life or bodily function? How? (Chest pain, [place], NM, pneumonia, PE, COPD, DKA, ARF, appy, cholecystitis, CVA, Diverticulitis, Homicidal, Suicidal, threat to staff... and all critical care pts) @ -No Diagnosis/symptom? @ -UTI Acute, or Chronic, or Acute on Chronic? @ -Acute Uncomplicated (without systemic symptoms) or Complicated (systemic symptoms)? @ -Uncomplicated Side effects of treatment? @ -none Exacerbation, Progression, or Severe Exacerbation] @ -no Poses a threat to life or bodily function? @ -no - Lab Data Result diagrams: 06/17/22 04:24 06/17/22 04:24 Lab Results 06/17/22 06/17/22 06/17/22 Range/Units 04:24 04:24 05:30 WBC 13.3 H (3.8-10.6) k/uL RBC 5.21 (3.80-5.40) m/uL Hgb 15.5 (11.4-16.0) gm/dL Hct 42.4 (34.0-46.0) % MCV 81.4 (80.0-100.0) fL MCH 29.8 (25.0-35.0) pg MCHC 36.6 (31.0-37.0) g/dL RDW 12.7 (11.5-15.5) % Plt Count 293 (150-450) k/uL MPV 7.6 Neutrophils % 88 % Lymphocytes % 7 % Monocytes % 3 % Eosinophils % 1 % Basophils % 0 % Neutrophils # 11.7 H (1.3-7.7) k/uL Lymphocytes # 0.9 L (1.0-4.8) k/uL Monocytes # 0.4 (0-1.0) k/uL Eosinophils # 0.2 (0-0.7) k/uL Basophils # 0.0 (0-0.2) k/uL Hyperchromasia Slight Sodium 137 (137-145) mmol/L Potassium 3.6 (3.5-5.1) mmol/L Chloride 106 (98-107) mmol/L Carbon Dioxide 16 L (22-30) mmol/L Anion Gap 15 mmol/L BUN 8 (7-17) mg/dL Creatinine 0.70 (0.52-1.04) mg/dL Est GFR (CKD-EPI)AfAm >90 (>60 ml/min/1.73 sqM) Est GFR (CKD-EPI)NonAf >90 (>60 ml/min/1.73 sqM) Glucose 122 H (74-99) mg/dL Calcium 8.7 (8.4-10.2) mg/dL Magnesium 2.0 (1.6-2.3) mg/dL Total Bilirubin 1.5 H (0.2-1.3) mg/dL AST 45 H (14-36) U/L ALT 42 H (4-34) U/L Alkaline Phosphatase 76 (38-126) U/L Total Protein 8.0 (6.3-8.2) g/dL Albumin 4.2 (3.5-5.0) g/dL Lipase 127 (23-300) U/L Urine Color [place] Urine Appearance Cloudy H (Clear) Urine pH 6.0 (5.0-8.0) Ur Specific [place] 1.031 (1.001-1.035) Urine Protein 1+ H (Negative) Urine Glucose (UA) Negative (Negative) Urine Ketones Negative (Negative) Urine Blood Negative (Negative) Urine Nitrite Negative (Negative) Urine Bilirubin 1+ H (Negative) Urine Urobilinogen 2.0 (<2.0) mg/dL Ur Leukocyte Esterase Moderate H (Negative) Urine RBC 2 (0-5) /hpf Urine WBC 29 H (0-5) /hpf Ur Squamous Epith Cells 10 H (0-4) /hpf Urine Bacteria Rare H (None) /hpf Urine Mucus Many H (None) /hpf Urine HCG, Qual (Not Detectd) 06/17/22 Range/Units 05:30 WBC (3.8-10.6) k/uL RBC (3.80-5.40) m/uL Hgb (11.4-16.0) gm/dL Hct (34.0-46.0) % MCV (80.0-100.0) fL MCH (25.0-35.0) pg MCHC (31.0-37.0) g/dL RDW (11.5-15.5) % Plt Count (150-450) k/uL MPV Neutrophils % % Lymphocytes % % Monocytes % % Eosinophils % % Basophils % % Neutrophils # (1.3-7.7) k/uL Lymphocytes # (1.0-4.8) k/uL Monocytes # (0-1.0) k/uL Eosinophils # (0-0.7) k/uL Basophils # (0-0.2) k/uL Hyperchromasia Sodium (137-145) mmol/L Potassium (3.5-5.1) mmol/L Chloride (98-107) mmol/L Carbon Dioxide (22-30) mmol/L Anion Gap mmol/L BUN (7-17) mg/dL Creatinine (0.52-1.04) mg/dL Est GFR (CKD-EPI)AfAm (>60 ml/min/1.73 sqM) Est GFR (CKD-EPI)NonAf (>60 ml/min/1.73 sqM) Glucose (74-99) mg/dL Calcium (8.4-10.2) mg/dL Magnesium (1.6-2.3) mg/dL Total Bilirubin (0.2-1.3) mg/dL AST (14-36) U/L ALT (4-34) U/L Alkaline Phosphatase (38-126) U/L Total Protein (6.3-8.2) g/dL Albumin (3.5-5.0) g/dL Lipase (23-300) U/L Urine Color Urine Appearance (Clear) Urine pH (5.0-8.0) Ur Specific [place] (1.001-1.035) Urine Protein (Negative) Urine Glucose (UA) (Negative) Urine Ketones (Negative) Urine Blood (Negative) Urine Nitrite (Negative) Urine Bilirubin (Negative) Urine Urobilinogen (<2.0) mg/dL Ur Leukocyte Esterase (Negative) Urine RBC (0-5) /hpf Urine WBC (0-5) /hpf Ur Squamous Epith Cells (0-4) /hpf Urine Bacteria (None) /hpf Urine Mucus (None) /hpf Urine HCG, Qual Not Detected (Not Detectd) Disposition Clinical Impression: Gastroenteritis, UTI (urinary tract infection) Disposition: HOME SELF-CARE Condition: Stable Prescriptions: Cephalexin [Keflex] 500 mg PO Q6HR 1 Days #20 cap Ondansetron Odt [Zofran Odt] 4 mg PO Q8HR PRN #20 tab PRN Reason: Nausea Is patient prescribed a controlled substance at d/c from ED?: No Referrals: Michael Kumari MD [Primary Care Provider] - 1-2 days Time of Disposition: 06:00
[2022-06-17 04:52] LABS: Basophils % (A) 0 %; Eosinophils # (A) 0.2 k/uL (0-0.7); Eosinophils % (A) 1 %; HCT 42.4 % (34.0-46.0); HGB 15.5 gm/dL (11.4-16.0); Hyperchromasia Slight; Lymphocytes # (A) 0.9 k/uL (1.0-4.8); Lymphocytes % (A) 7 %; MCH 29.8 pg (25.0-35.0); MCHC 36.6 g/dL (31.0-37.0); MCV 81.4 fL (80.0-100.0); Mean Platelet Volume 7.6; Monocytes # (A) 0.4 k/uL (0-1.0); Monocytes % (A) 3 %; Neutrophils # (A) 11.7 k/uL (1.3-7.7); Neutrophils % (A) 88 %; Platelet Count 293 k/uL (150-450); RBC 5.21 m/uL (3.80-5.40); RDW 12.7 % (11.5-15.5); WBC 13.3 k/uL (3.8-10.6)
[2022-06-17 05:03] LABS: ALT 42 U/L (4-34); AST 45 U/L (14-36); African American GFR (CKD) >90 (>60 ml/min/1.73 sqM); Albumin 4.2 g/dL (3.5-5.0); Alkaline Phosphatase 76 U/L (38-126); Anion Gap 15 mmol/L; Blood Urea Nitrogen 8 mg/dL (7-17); Calcium 8.7 mg/dL (8.4-10.2); Carbon Dioxide 16 mmol/L (22-30); Chloride 106 mmol/L (98-107); Glucose 122 mg/dL (74-99); Lipase 127 U/L (23-300); Non-African American GFR(CKD) >90 (>60 ml/min/1.73 sqM); Potassium 3.6 mmol/L (3.5-5.1); Sodium 137 mmol/L (137-145); Total Bilirubin 1.5 mg/dL (0.2-1.3)
[2022-06-17 06:04] LABS: Appearance,Urine Cloudy (Clear); Bacteria,Urine Rare /hpf; Bilirubin,Urine 1+ (Negative); Blood,Urine Negative (Negative); Color,Urine Orange; Glucose,Urine (UA) Negative (Negative); Ketones,Urine Negative (Negative); Leukocyte Esterase,Urine Moderate (Negative); Mucus,Urine Many /hpf; Nitrite,Urine Negative (Negative); Protein,Urine 1+ (Negative); RBC,Urine 2 /hpf (0-5); Specific Gravity,Urine 1.031 (1.001-1.035); Squamous Epithelial Cell,Urine 10 /hpf (0-4); WBC,Urine 29 /hpf (0-5)
[2022-06-17] MEDS ORDERED: CEPHALEXIN 500 MG CAP PO STA (06:05)
== END 2022-06-17 06:16 | disposition home or self-care (01) ==
LOC: EC 02:49
DX: K52.9 Noninfective gastroenteritis and colitis, unspecified (principal); N39.0 Urinary tract infection, site not specified
CPT/HCPCS: 36415; 80053; 81001; 81025; 83690; 83735; 85025; 96360; 99284